=== PATIENT | male | born 1950 | race Two or more races ===

== ENCOUNTER 2017-12-04 09:03 | Outpatient (CLI) | payer OTHER ==
[~2017-12-04 09:03] MED LIST: AMOX1TAB12 PO; CEPHALEXIN500 MG; CLONIDINE HCL0.2 MG; COZAAR100 MG; EFFEXOR XR150 MG; GLUCOTROL10 MG; LAMICTAL XR100 MG; NORVASC2.5 M1; PRILOSEC10 M1; PRINIVIL20 MG; TAMS0.4C
== END 2017-12-04 09:52 | disposition home or self-care (01) ==
LOC: LAB 09:03
DX: E78.1 Pure hyperglyceridemia (principal); E11.9 Type 2 diabetes mellitus without complications; I10 Essential (primary) hypertension; Z12.5 Encounter for screening for malignant neoplasm of prostate; N41.0 Acute prostatitis; N39.0 Urinary tract infection, site not specified; E78.00 Pure hypercholesterolemia, unspecified; E03.8 Other specified hypothyroidism

== ENCOUNTER 2018-02-10 08:32 | Outpatient (CLI) | payer OTHER | END 2018-02-10 08:40 | disposition home or self-care (01) | LOC: LAB 08:32 | DX: E11.9 Type 2 diabetes mellitus without complications (principal); E03.8 Other specified hypothyroidism ==

== ENCOUNTER → 2018-12-03 | Emergency (ER) | payer OTHER ==
[~2018-12-03] VITALS: Ht 165.1 cm; Wt 81.6 kg
== END | disposition left against medical advice (07) ==
LOC: ER 14:00
DX: R42 Dizziness and giddiness (principal)

== ENCOUNTER → 2020-09-29 | Emergency (ER) | payer OTHER ==
[~2020-09-29] VITALS: Ht 165.1 cm; Wt 79.4 kg
== END | disposition left against medical advice (07) ==
LOC: ER 15:04
DX: R10.84 Generalized abdominal pain (principal); R60.1 Generalized edema; Z11.52 Encounter for screening for COVID-19